=== PATIENT | male | born 1965 | race Caucasian/White ===

== ENCOUNTER 2017-07-27 01:31 | Emergency (ER) | payer BC ==
[2017-07-27] MEDS: TRANEXAMIC ACID 1,000 MG/10 ML VIAL. TOP (02:13)
[2017-07-27] MEDS: OXYMETAZOLINE 0.05% NASAL SPRAY 30ML BOTTLE. NS (02:13)
[2017-07-27] MEDS: LIDOCAINE 2%/EPI 1:100,000 20 ML VIAL. IJ (02:13)
[2017-07-27] MEDS: SILVER NITRATE STICK TP (03:42)
== END 2017-07-27 05:45 | disposition home or self-care (01) ==
LOC: ER 01:31
DX: R04.0 Epistaxis (principal); F41.9 Anxiety disorder, unspecified; E78.00 Pure hypercholesterolemia, unspecified; K21.9 Gastro-esophageal reflux disease without esophagitis
CPT/HCPCS: 30905; 99284; J3490